=== PATIENT | male | born 1965 | race Caucasian/White ===

== ENCOUNTER 2016-11-07 01:57 | Inpatient (IN) | payer SELFPAY ==
[~2016-11-07] VITALS: Ht 190.5 cm; Wt 132.6 kg
--- NOTE | 2016-11-07 02:00 | NUR ---
51 YO MALE BB RA. PT WAS FOUND LYING ON GROUND VOMITING, PT STATES PT DRANK A WHOLE BOTTLE OF WINE. PT DS TO ER BED, SKIN WARM AND DRY, RR EVEN AND UNLABORED. PT GOWNED, PLACED ON TECHNOLOGY INTERN. PT IS COVERED IN HIS OWN FECES. AWAITING ORDERS FROM PROVIDER
[2016-11-07] MEDS ORDERED: IV NS 0.9% 1,000 ML ONE (02:21)
[2016-11-07] MEDS ORDERED: METOCLOPRAMIDE HCL 10 MG/2 ML VIAL ONE (02:21)
[2016-11-07] MEDS ORDERED: PANTOPRAZOLE 40 MG VIAL ONE (02:21)
[2016-11-07] MEDS ORDERED: IV SET PRIMARY 1 EA INFUS.SET MC ONE (02:21)
[2016-11-07] MEDS ORDERED: PANTOPRAZOLE 80 MG in IV NS 0.9% 100 ML IV ONE (02:30)
[2016-11-07] MEDS ORDERED: IV NS 0.9% 1,000 ML BAG IV ONE (02:30)
[2016-11-07] MEDS ORDERED: METOCLOPRAMIDE HCL 10 MG/2 ML VIAL IV ONE (02:30)
--- NOTE | 2016-11-07 02:40 | NUR ---
medicated pt as ordered
[2016-11-07 02:53] LABS: BASOPHILS % (AUTO) 0.2 % (0.0-2.0); EOSINOPHILS # (AUTO) 0.1 /CMM (0.0-0.7); EOSINOPHILS % (AUTO) 1.3 % (0.0-6.0); HEMATOCRIT 47 % (39-51); HEMOGLOBIN 15.9 g/dL (13.5-17.5); LYMPHOCYTES # (AUTO) 3.3 /CMM (0.8-4.8); LYMPHOCYTES % (AUTO) 33.6 % (20.0-44.0); MEAN CORPUSCULAR HEMOGLOBIN 33 PG (26.0-33.0); MEAN CORPUSCULAR HGB CONC 34 g/dl (31.0-36.0); MEAN CORPUSCULAR VOLUME 98 fL (80-96); MONOCYTES # (AUTO) 0.4 /CMM (0.1-1.30); MONOCYTES % (AUTO) 4.2 % (2.0-12.0); NEUTROPHILS # (AUTO) 5.9 /CMM (1.8-8.9); NEUTROPHILS % (AUTO) 60.7 % (43.0-81.0); PLATELET COUNT (AUTO) 139 /CMM (150-450); WHITE BLOOD COUNT (AUTO) 9.8 K/uL (4.3-11.0)
[2016-11-07 03:06] LABS: INR 1.01 (0.87-1.13); PROTHROMBIN TIME 10.8 SECS (9.5-12.7)
[2016-11-07 03:09] LABS: ALANINE AMINOTRANSFERASE 37 U/L (12-78); ALBUMIN 3.9 g/dL (3.4-5.0); ALKALINE PHOSPHATASE 62 U/L (46-116); ASPARTATE AMINOTRANSFERASE 23 U/L (15-37); BILIRUBIN,DIRECT 0.1 mg/dL (0.0-0.2); BILIRUBIN,TOTAL 0.2 mg/dL (0.2-1.0); CARBON DIOXIDE 25 mmol/L (21-32); CHLORIDE 104 mmol/L (98-107); CREATININE 0.8 mg/dL (0.6-1.3); GLUCOSE 136 mg/dL (74-106); LIPASE 635 U/L (73-393); SODIUM SERUM 141 mmol/L (136-145); TOTAL PROTEIN, SERUM 7.1 g/dL (6.4-8.2); UREA NITROGEN, BLOOD 17 mg/dL (7-18)
[2016-11-07 03:10] LABS: TROPONIN I < 0.017 ng/mL (0.00-0.056)
--- NOTE | 2016-11-07 03:23 | NUR ---
PT RESTING IN ER BED, NAD NOTED. PT IS ON MANAGER DECISION SUPPORT. WILL CONTINUE TO MONITOR
--- NOTE | 2016-11-07 03:50 | NUR ---
REPORT GIVEN FOR TELE ADMISSION
--- NOTE | 2016-11-07 04:15 | NUR ---
RN OPEN NOTES RECEIVED PATIENT FROM ER VIA GURNEY. A/O X2. NO SIGNS OF DISTRESS OR DISCOMFORT. BREATHING EVEN AND UNLABORED. IV ACCESS IN LAC PATENT AND INTACT, NO SIGNS OF REDNESS OR INFILTRATION. ORIENTED PATIENT TO UNIT AND ROOM. BED IN LOW LOCKED POSITION WITH SIDE RAIL X3. CALL LIGHT WITHIN REACH. WILL CONTINUE TO MONITOR. Addendum: 11/07/16 at 0658 by CITLALY FERRER RN ATTACHED TELE MONITOR WITH SR 90 NOTED.
[2016-11-07] MEDS ORDERED: IV NS 0.9% 1,000 ML IV PRN (04:28)
[2016-11-07 04:30] VITALS: BP 134/94
[2016-11-07] MEDS ORDERED: MAGNESIUM HYDROXIDE 30 ML UDC PO PRN (04:30)
[2016-11-07] MEDS ORDERED: ONDANSETRON HCL/PF 4 MG/2 ML VIAL IVP PRN (04:30)
[2016-11-07] MEDS ORDERED: ENOXAPARIN SODIUM 40 MG/0.4 ML DISP.SYRIN SQ SCH (04:30)
[2016-11-07] MEDS ORDERED: ACETAMINOPHEN 325 MG TABLET PO PRN (04:30)
[2016-11-07] MEDS ORDERED: MAG HYDROX/AL HYDROX/SIMETH 30 ML UDC PO PRN (04:30)
[2016-11-07] MEDS ORDERED: LORAZEPAM INJ 2 MG/ML VIAL IV PRN (05:00)
[2016-11-07] MEDS ORDERED: SECONDARY IV SET 1 EA INFUS.SET MC ONE (05:07)
[2016-11-07] MEDS ORDERED: IV SET PRIMARY PUMP SET 1 EA INFUS.SET MC ONE ×2 (05:07→05:24)
[2016-11-07] MEDS ORDERED: ENOXAPARIN SODIUM 40 MG/0.4 ML DISP.SYRIN SQ ONE (05:10)
[2016-11-07] MEDS ORDERED: POTASSIUM CL. PREMIX PERIPHER. 100 ML ONE (05:12)
[2016-11-07] MEDS: POTASSIUM CL. PREMIX PERIPHER. 50 ML IV SCH ×4 (05:18→09:52)
[2016-11-07 07:14] VITALS: BP 147/81
--- NOTE | 2016-11-07 07:39 | NUR ---
RN CLOSING NOTES PATIENT RESTING IN BED, EASILY AROUSABLE TO NAME. A/O X2. NO SIGNS OF DISTRESS OR DISCOMFORT. BREATHING EVEN AND UNLABORED. IV ACCESS IN LAC WITH NS AND POTASSIUM CURRENTLY INFUSING, PATENT AND INTACT, NO SIGNS OF REDNESS OR INFILTRATION. ALL NEEDS ATTENDED TO. BED IN LOW LOCKED POSITION WITH SIDE RAIL X3. CALL LIGHT WITHIN REACH. ENDORSED TO AM SHIFT FOR MOSES.
--- NOTE | 2016-11-07 08:29 | NUR ---
RN NOTES RECEIVED PT. PT SLEEPING IN BED BUT EASILY AROUSABLE. A & O X 2. NO S/S OF DISTRESS, SOB OR PAIN. IV SITE LOCATED ON LAC 18 G. SAFETY MEASURES IN PLACE. WILL CONTINUE TO MONITOR.
[2016-11-07] MEDS: PANTOPRAZOLE 40 MG VIAL IV SCH ×2 (08:39→17:40)
[2016-11-07] MEDS ORDERED: ANESTHESIA TRAY IN PYXIS 1 EA TRAY MC ONE (11:30)
--- NOTE | 2016-11-07 11:34 | NUR ---
RN NOTE PT TAKEN DOWNSTAIRS FOR EGD. CONSENT FORM SIGNED.
[2016-11-07] MEDS ORDERED: ELVI1TAB3 PO (13:20)
--- NOTE | 2016-11-07 15:38 | NUR ---
RN NOTES PT'S FRIEND STATED THAT PT "FELL MULTIPLE TIMES AND HIT HIS HEAD" THE PREVIOUS NIGHT PRIOR TO ADMISSION. MD NOTIFIED, HEAD CT NO CONTRAST ORDERED.
[2016-11-07 16:00] VITALS: BP 161/96
--- NOTE | 2016-11-07 19:00 | NUR ---
DISCHARGE NOTE PT STABLE, LEFT HOSPITAL WITH FAMILY. IV D/C. DISCHARGE INSTRUCTIONS AND EDUCATION GIVEN AND UNDERSTOOD. DR. PAGAN NOTIFIED OF D/C, RX FOR PROTONIX GIVEN TO PATIENT. PATIENT INSTRUCTED TO FOLLOW UP WITH PRIMARY PHYSICIAN IN 1 WEEK.
== END 2016-11-07 18:50 | disposition home or self-care (01) | DRG 370 ==
LOC: ER 01:58 → TELE 04:05 → MED 09:50
PROVIDERS: ADMIT Nurse Practitioner Acute Care; ATTEND Nurse Practitioner Acute Care
PROC: 0DB68ZX Excision of Stomach, Via Natural or Artificial Opening Endoscopic, Diagnostic (ICD-10-PCS; principal; 2016-11-07 11:20)
DX: K22.6 Gastro-esophageal laceration-hemorrhage syndrome (principal); K76.0 Fatty (change of) liver, not elsewhere classified; R29.6 Repeated falls; I25.10 Atherosclerotic heart disease of native coronary artery without angina pectoris; Y90.7 Blood alcohol level of 200-239 mg/100 ml; F10.10 Alcohol abuse, uncomplicated; K29.70 Gastritis, unspecified, without bleeding
CPT/HCPCS: 36415; 70450-TC; 71010-TC; 72128-TC; 80048-TC; 80061-TC; 80076-TC; 82272-TC; 83690-TC; 83735-TC; 84100-TC; 84484-TC; 85025-TC; 85730-TC; 86850-TC; 87081-TC; 88305-TC; 88313-TC; 88342; A4606; C9113; G0480; J1650; J2405; J2765; J3480; J7030; Z7610